=== PATIENT | female | born 1995 | race Caucasian/White ===

== ENCOUNTER 2017-02-21 01:02 | Emergency (ER) | payer BC ==
[~2017-02-21] VITALS: Ht 175.3 cm; Wt 94.3 kg
[2017-02-21 01:06] VITALS: TEMP 37; Ht 175.3 cm; Wt 94.3 kg
[2017-02-21] MEDS ORDERED: KETOROLAC TROMETHAMINE 30 MG/ML VIAL IV STA (01:18)
[2017-02-21] MEDS ORDERED: SODIUM CHLORIDE 0.9% 1000ML 1,000 ML IV ONE (01:30)
[2017-02-21 01:50] LABS: BASO % 0.4 %; BASO ABS # 0.03 K/uL (0-0.2); COMPLETE YES; EOS % 0.9 %; HEMATOCRIT 35.7 % (37-47); IG% 0.1 %; LYMPH % 23.7 %; LYMPH ABS # 1.91 K/uL (1.2-3.4); MEAN CORPUSCULAR HGB CONC 35.9 g/dl (32-36); MEAN PLATELET VOLUME 10.1 fL (7.4-10.4); MONO % 5.2 %; NEUT % 69.7 %; PLATELET COUNT 246 K/uL (130-400); RED BLOOD COUNT 3.88 M/uL (4.2-5.4); WHITE BLOOD COUNT 8.06 K/uL (4.8-10.8)
[2017-02-21 01:56] LABS: URINE APPEARANCE CLEAR (CLEAR); URINE BILIRUBIN NEG (NEG); URINE COLOR YELLOW; URINE NITRITE NEG (NEG); URINE SPECIFIC GRAVITY 1.007 (1.000-1.030); UROBILINOGEN NEG (NEG); ZZUR CULT IF INDIC CLEAN CATCH NO
[2017-02-21 02:10] LABS: MANUAL MICROSCOPIC REQUIRED? NO; REVIEW REQ? NO
[2017-02-21 02:13] LABS: BUN/CREATININE RATIO 14.4 (10-20); CALCIUM 8.4 mg/dl (8.5-10.1); CREATININE 0.96 mg/dl (0.60-1.20); POTASSIUM 3.5 mmol/L (3.5-5.1)
[2017-02-21 02:15] LABS: ALB/GLOB RATIO 1.3 (0.9-2)
[2017-02-21] MEDS ORDERED: BCPILLS PO (02:16)
[2017-02-21] MEDS ORDERED: CALCIUM CARBONATE 500 MG CHEWABLE PO ONE (02:30)
[2017-02-21] MEDS ORDERED: OXYCODONE IR HOME PACK PO ONE (03:00)
[2017-02-21] MEDS ORDERED: OXYC1TAB3 PO (04:12)
[2017-02-21 04:19] VITALS: BP 125/53; PULSE 74; O2SAT 98
--- NOTE | 2017-02-21 05:35 | EMERGENCY ROOM VISIT NOTE ---
History First contact with patient: 01:11 Chief Complaint: FALL Stated Complaint: FALL- HURT RT ARM,HIT HEAD-PASSED OUT FOR A MINUTE History of Present Illness The patient is a 21 year old female who presents to the Emergency Room with complaints of headache and right arm pain after falling and injuring herself about 30 minutes ago. The patient was at her friend's house, and is unsure if she slipped or had a syncopal episode. The patient ultimately felt to the ground inside the home, landing on the hardwood floor, causing her injuries. She has been drinking alcohol tonight. There was questionable loss of consciousness. The patient does not have lightheadedness, dizziness, neck pain , chest pain, chest tightness, shortness of breath, or abdominal pain. No numbness or paresthesias. She rates her discomfort a 9/10. Review of Systems More than 10 systems were reviewed and otherwise negative with the exception of history of present illness. Past Medical/Surgical History No chronic medical disease Family History No pertinent family history Social History Smoking Status: Never Smoker Alcohol Use: occasionally Occupation Status: [employer] student Current/Historical Medications Scheduled Control Pills ( Control Pills), 1 TAB PO DAILY Allergies Coded Allergies: No Known Allergies (Unverified , 02/21/17) Physical Exam Vital Signs Date Time Temp Pulse Resp B/P Pulse Ox O2 Delivery O2 Flow Rate FiO2 02/21/17 03:00 88 17 132/97 95 Room Air 02/21/17 02:30 91 16 116/79 100 Room Air 02/21/17 02:09 87 16 113/65 100 Room Air 02/21/17 01:06 37.0 89 18 130/71 100 Room Air Physical Exam VITALS: Vitals are noted on the nurse's note and reviewed by myself. Vital signs stable. GENERAL: Well-developed, well-nourished, white female who appears mildly intoxicated on examination. She is quite uncomfortable secondary to her stated complaint. She is holding her right arm with her left hand. Patient is cooperative with the examination. GCS 15 HEAD: Normocephalic atraumatic. EARS: External ear normal. External auditory canals clear, tympanic membranes pearly roa without erythema or effusion bilaterally. EYES: Pupils equal round and reactive to light and accommodation. Conjunctivae without injection, sclerae without icterus. Extraocular movements intact. NOSE: Patent, turbinates without inflammation or discharge. MOUTH: Mucous membranes moist. Tonsils are not enlarged. Pharynx without erythema, blood, or exudate. Uvula midline. Airway patent. NECK: Supple without nuchal rigidity. No lymphadenopathy. No thyromegaly. Cervical spine is nontender. HEART: Regular rate and rhythm without murmurs gallops or rubs. LUNGS: Clear to auscultation bilaterally without wheezes, rales or rhonchi. No retractions or accessory muscle use. ABDOMEN: Positive normal bowel sounds x 4. Soft, nontender, without masses or organomegaly. No guarding or rebound tenderness. MUSCULOSKELETAL: Notable tenderness appreciated over the mid to distal humerus. No gross deformity noted. No laceration or bleeding. Neurovascular status is intact the distal extremity. No tenderness of the right shoulder or right wrist. Blind Aide strength is 5/5. No snuffbox tenderness NEURO: Patient was alert and oriented to person place and time. Medical Decision & Procedures ER Provider Diagnostic Interpretation: Preliminary Findings Only See Final Report For Complete Findings CT HEAD: No acute intracranial abnormality. No ICH, mass effect or edema. No skull fracture. Mild right parietal scalp swelling. Laboratory Results 02/21/17 01:25 Red Blood Count 3.88, Mean Corpuscular Volume 92.0, Mean Corpuscular Hemoglobin 33.0, Mean Corpuscular Hemoglobin Concent 35.9, Mean Platelet Volume 10.1, Neutrophils (%) (Auto) 69.7, Lymphocytes (%) (Auto) 23.7, Monocytes (%) (Auto) 5.2, Eosinophils (%) (Auto) 0.9, Basophils (%) (Auto) 0.4, Neutrophils # (Auto) 5.62, Lymphocytes # (Auto) 1.91, Monocytes # (Auto) 0.42, Eosinophils # (Auto) 0.07, Basophils # (Auto) 0.03 02/21/17 01:25 Test 02/21/17 01:25 02/21/17 01:32 02/21/17 01:38 02/21/17 01:40 White Blood Count 8.06 K/uL (4.8-10.8) Red Blood Count 3.88 M/uL (4.2-5.4) Hemoglobin 12.8 g/dL (12.0-16.0) Hematocrit 35.7 % (37-47) Mean Corpuscular Volume 92.0 fL (80-100) Mean Corpuscular Hemoglobin 33.0 pg (25-34) Mean Corpuscular Hemoglobin Concent 35.9 g/dl (32-36) Platelet Count 246 K/uL (130-400) Mean Platelet Volume 10.1 fL (7.4-10.4) Neutrophils (%) (Auto) 69.7 % Lymphocytes (%) (Auto) 23.7 % Monocytes (%) (Auto) 5.2 % Eosinophils (%) (Auto) 0.9 % Basophils (%) (Auto) 0.4 % Neutrophils # (Auto) 5.62 K/uL (1.4-6.5) Lymphocytes # (Auto) 1.91 K/uL (1.2-3.4) Monocytes # (Auto) 0.42 K/uL (0.11-0.59) Eosinophils # (Auto) 0.07 K/uL (0-0.5) Basophils # (Auto) 0.03 K/uL (0-0.2) RDW Standard Deviation 39.6 fL (36.4-46.3) RDW Coefficient of Variation 11.7 % (11.5-14.5) Immature Granulocyte % (Auto) 0.1 % Immature Granulocyte # (Auto) 0.01 K/uL (0.00-0.02) Anion Gap 10.0 mmol/L (3-11) Est Creatinine Clear Calc Drug Dose 115.3 ml/min Estimated GFR () 99.4 Estimated GFR (Non- 85.7 BUN/Creatinine Ratio 14.4 (10-20) Calcium Level 8.4 mg/dl (8.5-10.1) Total Bilirubin 0.3 mg/dl (0.2-1) Aspartate Amino Transf (AST/SGOT) 18 U/L (15-37) Alanine Aminotransferase (ALT/SGPT) 20 U/L (12-78) Alkaline Phosphatase 48 U/L (45-117) Total Protein 7.5 gm/dl (6.4-8.2) Albumin 4.2 gm/dl (3.4-5.0) Globulin 3.3 gm/dl (2.5-4.0) Albumin/Globulin Ratio 1.3 (0.9-2) Bedside Troponin I 0.000 ng/ml (0-0.045) Ethyl Alcohol mg/dL 205.0 mg/dl (0-3) Urine Color YELLOW Urine Appearance CLEAR (CLEAR) Urine pH 6.0 (4.5-7.5) Urine Specific [place] 1.007 (1.000-1.030) Urine Protein NEG (NEG) Urine Glucose (UA) NEG (NEG) Urine Ketones NEG (NEG) Urine Occult Blood NEG (NEG) Urine Nitrite NEG (NEG) Urine Bilirubin NEG (NEG) Urine Urobilinogen NEG (NEG) Urine Leukocyte Esterase NEG (NEG) Urine Test NEG (NEG) Medications Administered Medications (Trade) Dose Ordered Sig/Kimberli Route Start Time Stop Time Status Last Admin Dose Admin Sodium Chloride (Nss 1000ml) 1,000 ml @ 999 mls/hr Q1H1M ONCE IV 02/21/17 01:30 02/21/17 02:30 DC 02/21/17 01:51 999 MLS/HR Ketorolac Tromethamine (Toradol Inj) 30 mg NOW STAT IV 02/21/17 01:18 02/21/17 01:20 DC 02/21/17 01:50 30 MG Calcium Carbonate (Tums Chew Tab) 1,000 mg NOW ONCE PO 02/21/17 02:30 02/21/17 02:31 DC 02/21/17 02:43 1,000 MG Oxycodone HCl (Roxicodone Immediate Rel 5MG Home Pack) 1 homepack UD ONCE PO 02/21/17 03:00 02/21/17 03:01 DC 02/21/17 03:11 1 HOMEPACK ED Course Physical exam and history were performed. Nursing notes and EMR were reviewed. Patient appears to have fallen today and suffered injury to her right arm. There is concern the patient may have had a syncopal episode and possible loss of consciousness. IV access was established and labs were obtained. The patient was hydrated and medicated as above. Because of her injury CT scan of the head and x-ray of the arm were performed. Her EKG was normal sinus rhythm without ischemia or ectopy. She was placed on a lab tech. The patient blood work is as above and was reviewed. She does not have a significantly elevated white blood cell count, worsening anemia, bandemia, or significant electrolyte imbalance. Her troponin 1 is negative. Her alcohol is elevated at roughly 200, and this likely did contribute to her injury today. Her CT scan of the head was without evidence of acute fracture or bleed. X- ray was reviewed by myself and my attending and reveals a supracondylar fracture. I discussed the case with orthopedics, Dr. Aburto, who did recommend splinting and sling. The patient is felt to be stable for outpatient follow-up as she does not have neurologic deficit. I spoke with the patient's father, who evidently lives near [place], and the family does have a preference for follow-up back home. This appears reasonable. The patient was given copies of her x-ray films. She will be given a course of oxycodone for pain control. I suspect that her episode today is a result of drinking alcohol and not a true syncope. The patient was invited to return to the ER with any new, worsening, or concerning symptoms, however I expect that her family will be picking her up in the morning and will likely follow-up back home. The chart was completed utilizing [employer] Voice Recognition Software. Grammatical errors, random word insertions, pronoun errors, and incomplete sentences are an occasional consequence of this system due to software limitations, ambient noise, and hardware issues. Any formal questions or concerns about the content, text, or information contained within the body of this dictation should be directly addressed to the provider for clarification. . Medical Decision Differential diagnosis includes, but is not limited to: Sprain, strain, fracture , dislocation, subluxation, contusion, alcohol intoxication, syncopal episode, mechanical fall, and others Impression Primary Impression: Fall Additional Impression: Supracondylar fracture of humerus Departure Information Referrals No Doctor, Assigned (PCP) Patient Instructions [facility] Health Problem Qualifiers Primary Impression: Fall Encounter type: initial encounter Qualified Codes: W19.XXXA - Unspecified fall, initial encounter Additional Impression: Supracondylar fracture of humerus Encounter type: initial encounter Fracture type: closed Laterality: right Qualified Codes: S42.411A - Displaced simple supracondylar fracture without intercondylar fracture of right humerus, initial encounter for closed fracture
--- NOTE | 2017-02-21 07:04 | DIAGNOSTIC IMAGING REPORT ---
CT SCAN OF THE BRAIN WITHOUT IV CONTRAST CLINICAL HISTORY: Fall with head injury. COMPARISON STUDY: No priors. TECHNIQUE: Unenhanced axial CT scan of the brain is performed from the vertex to the skull base. Automated dose control exposure was utilized. The skull base was scanned twice due to motion artifact. The examination is modestly degraded by motion artifact. CT DOSE: 844.62 mGy.cm FINDINGS: Brain parenchyma: The brain parenchyma is normal in appearance. There is no hemorrhage, mass effect, or evidence of acute territorial ischemia by CT criteria. [place]-white matter is preserved. No extra-axial fluid collection is seen. Ventricles, sulci, cisterns: Normal in configuration. Intracranial vasculature: The visualized intracranial vasculature at the skull base is normal in appearance. Calvarium: There is no depressed calvarial fracture. Sinuses and mastoids: The visualized paranasal sinuses are clear. The mastoid air cells are well pneumatized. Orbits: The bony orbits are grossly intact. IMPRESSION: No acute intracranial abnormality. Electronically signed by: Basilio Quijano M.D. 02/21/2017 7:02 AM Dictated Date/Time: 02/21/2017 7:01 AM
--- NOTE | 2017-02-21 07:30 | DIAGNOSTIC IMAGING REPORT ---
RIGHT HUMERUS 2 VIEWS CLINICAL HISTORY: Fall with right arm injury. FINDINGS: AP and lateral views of the right humerus are obtained. No prior studies are available for comparison at the time of dictation. The skeletal structures are well mineralized. There is a comminuted supracondylar humeral fracture with posteriorly and laterally distracted fragments. Fracture appears to extend to the joint space of the elbow. There is apex volar angulation. An elbow joint effusion is suspected and there is surrounding soft tissue edema. The proximal humeral shaft of the shoulder joint appear preserved. The imaged right lung parenchyma appears clear. IMPRESSION: There is a comminuted and angulated supracondylar humeral fracture with distracted fragments and intra-articular extension. Electronically signed by: Basilio Quijano M.D. 02/21/2017 7:28 AM Dictated Date/Time: 02/21/2017 7:27 AM
== END 2017-02-21 04:19 | disposition home or self-care (01) ==
LOC: C.EDB 01:04 → C.EDA 04:19
DX: S42.411A Displaced simple supracondylar fracture without intercondylar fracture of right humerus, initial encounter for closed fracture (principal); W19.XXXA Unspecified fall, initial encounter